=== PATIENT | female | born 1965 | race African-American/Black ===

== ENCOUNTER 2024-07-27 13:22 | Outpatient (CLI) | payer OTHER | END 2024-07-27 13:23 | disposition home or self-care (01) | LOC: CSHWCC 13:22 | PROVIDERS: ATTEND Nurse Practitioner Family | DX: S21.001D Unspecified open wound of right breast, subsequent encounter (principal); C50.111 Malignant neoplasm of central portion of right female breast | CPT/HCPCS: 99213; G0463 ==

== ENCOUNTER 2024-08-03 12:16 | Outpatient (CLI) | payer OTHER | END 2024-08-03 12:17 | disposition home or self-care (01) | LOC: CSHULT 12:16 | PROVIDERS: ATTEND Internal Medicine | DX: C50.211 Malignant neoplasm of upper-inner quadrant of right female breast (principal); D50.9 Iron deficiency anemia, unspecified; Z51.11 Encounter for antineoplastic chemotherapy | CPT/HCPCS: 93306 ==

== ENCOUNTER 2024-08-03 13:59 | Outpatient (CLI) | payer OTHER | END 2024-08-03 14:00 | disposition home or self-care (01) | LOC: CSHWCC 13:59 | PROVIDERS: ATTEND Nurse Practitioner Family | DX: S21.001D Unspecified open wound of right breast, subsequent encounter (principal); C50.111 Malignant neoplasm of central portion of right female breast | CPT/HCPCS: 99212; G0463 ==

== ENCOUNTER 2024-08-17 15:44 | Outpatient (CLI) | payer OTHER | END 2024-08-17 15:45 | disposition home or self-care (01) | LOC: CSHWCC 15:44 | PROVIDERS: ATTEND Nurse Practitioner Family | DX: S21.001D Unspecified open wound of right breast, subsequent encounter (principal); C50.111 Malignant neoplasm of central portion of right female breast | CPT/HCPCS: 99213; G0463 ==